=== PATIENT | female | born 1995 | race African-American/Black ===

== ENCOUNTER 2016-10-19 21:22 | Emergency (ER) | payer OTHER ==
[~2016-10-19] VITALS: Ht 154.9 cm; Wt 61.0 kg
[~2016-10-19 21:22] MED LIST: BENADRYL50 MG PO; CIPRO500 MG PO; DEPO-PROVER150 MG/ML IM; DIFLUCAN150 MG PO; FLAGYL500 MG PO; HYDROCODON-ACE1 EAC7 PO; IBUPROFEN800 MG PO; MACROBID100 MG PO; MOTRIN800 MG PO; NAPROSYN500 MG PO; NOHOMEMEDS; PREDNISONE50 MG PO; PRENATAL VITAM1 EAC2 PO; XULANE PATCH1 EACH TD; ZANTAC150 MG PO
[2016-10-19] MEDS ORDERED: NAPROSYN500 MG PO (22:41)
[2016-10-19 22:57] VITALS: BP 131/79
== END 2016-10-19 22:58 | disposition home or self-care (01) ==
LOC: RME 21:22 → EME 21:22 → RME 22:58
DX: S06.0X0A Concussion without loss of consciousness, initial encounter (principal); S00.83XA Contusion of other part of head, initial encounter; Y04.8XXA Assault by other bodily force, initial encounter; Y92.009 Unspecified place in unspecified non-institutional (private) residence as the place of occurrence of the external cause; Y07.9 Unspecified perpetrator of maltreatment and neglect
CPT/HCPCS: 99281; 99283

== ENCOUNTER 2017-09-17 06:37 | Emergency (ER) | payer OTHER ==
[~2017-09-17] VITALS: Ht 154.9 cm; Wt 62.3 kg
[2017-09-17 08:23] LABS: APPEARANCE CLOUDY ((CLEAR)); BILIRUBIN NEGATIVE; BLOOD SMALL; COLOR YELLOW ((YELLOW)); GLUCOSE (STRIP) NEGATIVE; KETONES NEGATIVE; LEUKOCYTES LARGE; NITRITE NEGATIVE; PROTEIN (STRIP) 30; SPECIFIC GRAVITY 1.021 (1.000-1.030); UROBILINOGEN 0.2 MG/DL (0.2-1.0)
[2017-09-17 09:14] LABS: BACTERIA 2+ /HPF; EPITHELIAL CELLS 3+ /HPF; MUCUS 1+ /LPF; UCUL ADDED? YES; WHITE BLOOD CELLS 40-50 /HPF (0-5)
[2017-09-17] MEDS ORDERED: MACROBID100 MG PO (09:26)
[2017-09-17] MEDS ORDERED: FLONASE16 G1 BOTH NARES (09:26)
[2017-09-17 09:47] VITALS: BP 130/90
== END 2017-09-17 09:57 | disposition home or self-care (01) ==
LOC: EME 06:37
PROVIDERS: Nurse Practitioner Family
DX: N30.90 Cystitis, unspecified without hematuria (principal); B34.9 Viral infection, unspecified; Z79.3 Long term (current) use of hormonal contraceptives; Z87.891 Personal history of nicotine dependence
CPT/HCPCS: 81003; 81025; 87077; 87086; 87186; 99281; 99284